=== PATIENT | female | born 1940 | race Caucasian/White ===

== ENCOUNTER 2020-05-06 16:01 | Emergency (ER) | payer MEDICARE, OTHER ==
--- NOTE | 2020-05-06 16:20 | ER Document Report ---
ED Medical Screen (RME) - General Chief Complaint: Shortness Of Breath Stated Complaint: SHORTNESS OF BREATH Time Seen by Provider: 05/06/20 16:11 Primary Care Provider: DYLON MARTINEZ MD [JACKIE] - Follow up as needed Mode of Arrival: Ambulatory Information source: Patient Notes: 79-year-old female presented to ED for complaint of shortness of breath and elevated blood pressure. She states she went to [facility] the case resource manager office today for routine visit and she told her that her blood pressure was too high. When I checked her blood pressure in the triage area blood pressure was 162/80 manually. She states she has had shortness of breath off and on for couple years. She states she does have a history of reflux and hiatal hernia. She states she has had endoscopy and colonoscopy for this. She goes to the [facility] in [place] for her care Patient is alert oriented respirations regular nonlabored at this time. I have greeted and performed a rapid initial assessment of this patient. A comprehensive ED assessment and evaluation of the patient, analysis of test results and completion of medical decision making process will be conducted by an additional ED providers. - Related Data Allergies/Adverse Reactions: No Known Allergies Allergy (Verified 05/06/20 16:12) Physical Exam - Vital signs Vitals: BP 162/80 H 05/06/20 16:16 Course - Vital Signs Vital signs: Temp Pulse Resp BP Pulse Ox 98.1 F 80 18 151/87 H 95 05/06/20 16:23 05/06/20 16:23 05/06/20 16:23 05/06/20 16:23 05/06/20 16:23 - Laboratory Results Result Diagrams: 05/06/20 16:45 05/06/20 16:45 Laboratory Results Interpreted: 05/06/20 16:45 BUN 29 H Doctor's Discharge - Discharge Clinical Impression: Essential hypertension Disposition: HOME, SELF-CARE Additional Instructions: Please call your primary care doctor to obtain an office visit. Return to the emergency department for any concerning worsening symptoms. Referrals: DYLON MARTINEZ MD [JACKIE] - Follow up as needed
[2020-05-06 16:30] VITALS: BP 151/87
--- NOTE | 2020-05-06 16:54 | RADIOLOGY REPORT (SQ) ---
EXAM DESCRIPTION: CHEST 2 VIEWS IMAGES COMPLETED DATE/TIME: 05/06/2020 4:39 pm REASON FOR STUDY: Short of breath a couple years COMPARISON: None. EXAM PARAMETERS: NUMBER OF VIEWS: two views TECHNIQUE: Digital Frontal and Lateral radiographic views of the chest acquired. RADIATION DOSE: NA LIMITATIONS: none FINDINGS: LUNGS AND PLEURA: Moderate size hiatal hernia. No consolidation or effusions. MEDIASTINUM AND HILAR STRUCTURES: No masses or contour abnormalities. HEART AND VASCULAR STRUCTURES: Heart normal size. No evidence for failure. BONES: No acute findings. HARDWARE: None in the chest. OTHER: No other significant finding. IMPRESSION: Moderate size hiatal hernia. No other significant findings. TECHNICAL DOCUMENTATION: JOB ID: [id number] 2010 [employer]- All Rights Reserved Reading location - IP/workstation name: [email or web address]
[2020-05-06 16:57] LABS: ABSOLUTE BASOPHILS # (AUTO) 0.1 10^3/uL (0.0-0.2); ABSOLUTE EOSINOPHILS # (AUTO) 0.1 10^3/uL (0.0-0.6); ABSOLUTE MONOCYTES (AUTO) 0.6 10^3/uL (0.1-1.4); ABSOLUTE NEUT (AUTO) 5.4 10^3/uL (1.7-8.2); BASOPHILS % (AUTO) 0.7 % (0-2); EOSINOPHILS % (AUTO) 1.1 % (0-6); HEMATOCRIT 40.5 % (36.0-47.0); HEMOGLOBIN 13.6 g/dL (12.0-15.5); LYMPHOCYTES % (AUTO) 24.7 % (13-45); MEAN CORPUSCULAR HEMOGLOBIN 31.1 pg (27.0-33.4); MEAN CORPUSCULAR HGB CONC 33.6 g/dL (32.0-36.0); MEAN CORPUSCULAR VOLUME 93 fl (80-97); MONOCYTES % (AUTO) 7.5 % (3-13); PLATELET COUNT 273 10^3/uL (150-450); RED BLOOD COUNT 4.37 10^6/uL (3.72-5.28); TOTAL CELLS COUNTED % (AUTO) 100 %; WHITE BLOOD COUNT 8.1 10^3/uL (4.0-10.5)
--- NOTE | 2020-05-06 17:09 | ER Document Report ---
ED General - General Chief Complaint: Shortness Of Breath Stated Complaint: SHORTNESS OF BREATH Time Seen by Provider: 05/06/20 16:11 Primary Care Provider: DYLON MARTINEZ MD [EMERITUS] - Follow up as needed Mode of Arrival: Ambulatory - [facility] Notes: 79-year-old female presents with concerns for high blood pressure. Patient states that she was at her central office inspector office today for routine follow-up appointment. She states that her blood pressure was taken and the ophthalm ologist told her that her blood pressure was way too high and that she needed to go to the emergency department for evaluation. Patient states she has been diagnosed with high blood pressure in the past, however she is not on any medications. She has also been diagnosed with high cholesterol and a hiatal hernia. Patient states that she is trying to make a appointment with her primary care doctor for the past several months, however she is unable to successfully get an appointment in person. Patient reports that she intermittently experiences shortness of breath at night, states that she will awaken and feel breathless and then it is often hard for her to fall back asleep. This has been going on for years. Patient has not been evaluated for this. She has no history of JONEL. No shortness of breath with exertion, no chest pain. Patient currently denies complaints. - Related Data Allergies/Adverse Reactions: No Known Allergies Allergy (Verified 05/06/20 16:12) Past Medical History - General Information source: Patient - Social History Smoking Status: Unknown if Ever Smoked Family History: Reviewed & Not Pertinent Review of Systems - Review of Systems Constitutional: No symptoms reported EENT: No symptoms reported Cardiovascular: denies: Chest pain Respiratory: denies: Short of breath - Denies currently Gastrointestinal: denies: Abdominal pain Genitourinary: No symptoms reported Female Genitourinary: No symptoms reported Musculoskeletal: No symptoms reported Skin: No symptoms reported Hematologic/Lymphatic: No symptoms reported Neurological/Psychological: denies: Headaches Physical Exam - Vital signs Vitals: BP 162/80 H 05/06/20 16:16 - General General appearance: Appears well, Alert In distress: None - HEENT Head: Normocephalic, Atraumatic Extraocular movements intact: Yes Pupils: PERRL, Dilated - Left pupil dilated, done at the ophthalmology office Neck: Supple - Respiratory Respiratory status: No: Labored Breath sounds: Normal. No: Rales, Rhonchi - Cardiovascular Rhythm: Regular Heart sounds: Normal auscultation Normal capillary refill: Yes - Abdominal Tenderness: Nontender - Extremities General upper extremity: Normal ROM General lower extremity: Normal ROM. No: Edema - Neurological Neuro grossly intact: Yes Cognition: Normal Orientation: AAOx4 Speech: Normal Cranial nerves: Normal Motor strength normal: LUE, RUE, LLE, RLE - Psychological Associated symptoms: Normal affect - Skin Skin Temperature: Warm Course - Re-evaluation Re-evalutation: 79-year-old female with history of hypertension not on any current medications sent from ophthalmology office for hypertension. Patient is currently asymptomatic. Initial blood pressure 162/80, and is since down trended to 151/87. She is otherwise hemodynamic stable and afebrile. On exam she is alert, well-appearing, lungs are clear, heart RRR, no focal neuro deficits. In terms of her shortness of breath at night, I discussed with patient possibly is an effect of her hiatal hernia versus sleep apnea. I advised patient that is very important that she call the primary care to obtain a follow-up visit, there is more work-up that can be done as an outpatient to determine if JONEL is the cause, primary care doctor can also consider starting potentially blood pressure medication. She verbalized understanding. Laboratory evaluation was ordered through the triage process, results pending. 05/06/20 17:44 No leukocytosis or left shift. No acute anemia. Electrolytes within normal limits. Creatinine within normal limits. Troponin negative. No UTI. Chest x-ray without consolidation. Does show hiatal hernia. 05/06/20 17:49 Patient was updated on the results. I encouraged her to please follow-up with the primary care doctor, she verbalized understanding peer return precautions given, stable at time of discharge. - Vital Signs Vital signs: Temp Pulse Resp BP Pulse Ox 98.1 F 80 18 151/87 H 95 05/06/20 16:23 05/06/20 16:23 05/06/20 16:23 05/06/20 16:23 05/06/20 16:23 - Laboratory Results Result Diagrams: 05/06/20 16:45 05/06/20 16:45 Laboratory Results Interpreted: 05/06/20 16:45 BUN 29 H Critical Laboratory Results Reviewed: No Critical Results - Radiology Results Critical Radiology Results Reviewed: No Critical Results - EKG Interpretation by Me Additional EKG results interpreted by me: EKG is interpreted by me. Sinus rhythm, rate 79. QRS 100 ms. QTc within normal limits. No ST segment elevation or depression. LVH. No previous available for comparison. Discharge - Discharge Clinical Impression: Essential hypertension Disposition: HOME, SELF-CARE Additional Instructions: Please call your primary care doctor to obtain an office visit. Return to the emergency department for any concerning worsening symptoms. Referrals: DYLON MARTINEZ MD [EMERITUS] - Follow up as needed
[2020-05-06 17:10] LABS: APPEARANCE,URINE CLEAR; BILIRUBIN,URINE NEGATIVE (NEGATIVE); COLOR,URINE YELLOW; GLUCOSE, URINE NEGATIVE (NEGATIVE); KETONES,URINE NEGATIVE (NEGATIVE); LEUKOCYTE ESTERASE,URINE NEGATIVE (NEGATIVE); NITRITE,URINE NEGATIVE (NEGATIVE); PROTEIN,URINE NEGATIVE (NEGATIVE); URINE SPECIFIC GRAVITY 1.021; UROBILINOGEN,URINE NEGATIVE mg/dL (<2.0)
[2020-05-06 17:19] LABS: ALBUMIN 4.5 g/dL (3.5-5.0); ALKALINE PHOSPHATASE 90 U/L (38-126); ANION GAP 5 (5-19); ASPARTATE AMINO TRANSFERASE 30 U/L (14-36); BILIRUBIN,DIRECT 0.2 mg/dL (0.0-0.4); BILIRUBIN,TOTAL 0.4 mg/dL (0.2-1.3); BLOOD UREA NITROGEN 29 mg/dL (7-20); CALCIUM 9.7 mg/dL (8.4-10.2); CARBON DIOXIDE 29 mmol/L (22-30); CHLORIDE 104 mmol/L (98-107); GLUCOSE 100 mg/dL (75-110); POTASSIUM 4.6 mmol/L (3.6-5.0); TOTAL PROTEIN 7.5 g/dL (6.3-8.2)
--- NOTE | 2020-05-06 17:59 | EKG REPORT ---
SEVERITY:- ABNORMAL ECG - SINUS ARRHYTHMIA, RATE 66-94 LEFT ANTERIOR FASCICULAR BLOCK LEFT VENTRICULAR HYPERTROPHY : Confirmed by: Petr Gonzalez MD 06-May-2020 17:59:09
== END 2020-05-06 17:58 | disposition home or self-care (01) ==
LOC: ER 16:01
DX: I10 Essential (primary) hypertension (principal); R06.02 Shortness of breath; E78.00 Pure hypercholesterolemia, unspecified; K44.9 Diaphragmatic hernia without obstruction or gangrene
CPT/HCPCS: 36415; 71046; 80053; 81001; 83690; 84484; 85025; 93005; 93010; 99285